=== PATIENT | male | born 1955 | race Caucasian/White ===

== ENCOUNTER 2017-01-14 15:04 | Emergency (ER) | payer MEDICARE, MEDICAID ==
--- NOTE | 2017-01-14 15:11 | ER Document Report ---
ED Medical Screen (RME) - General Stated Complaint: LEFT KNEE PAIN Mode of Arrival: Medic Information source: Patient Notes: 61-year-old male presents to ED via EMS for pain in his left knee. States that the pain caused him to fall. He has a history of left knee pain with surgeries 3 to that side he also has a history of a stroke with left-sided weakness. I have greeted and performed a rapid initial assessment of this patient. A comprehensive ED assessment and evaluation of the patient, analysis of test results and completion of medical decision making process will be conducted by an additional ED providers. TRAVEL OUTSIDE OF THE [place] IN LAST 30 DAYS: No - Related Data Allergies/Adverse Reactions: No Known Allergies Allergy (Verified 09/21/16 10:12) Past Medical History - Past Medical History Cardiac Medical History: Reports: Hx Coronary Artery Disease, Hx Hypercholesterolemia, Hx Hypertension - on meds Denies: Hx Heart Attack Pulmonary Medical History: Reports: Hx COPD - inhalers Denies: Hx Asthma, Hx Bronchitis, Hx Pneumonia Neurological Medical History: Reports: Hx Cerebrovascular Accident - x3, Hx Migraine - gets botox injection tx, Hx Seizures - p stroke x 1 yr ago,on meds GI Medical History: Reports: Hx Diverticulitis, Hx Gastroesophageal Reflux Disease, Hx Colonoscopy, Hx Endoscopy Musculoskeltal Medical History: Reports Hx Arthritis - knees, Reports Hx Musculoskeletal Trauma Psychiatric Medical History: Reports: Hx Depression Past Surgical History: Reports: Hx Carotid Endarterectomy - Right, Hx Orthopedic Surgery - right rotator, left knee scope x3, Hx Tonsillectomy, Hx Vascular Surgery - right carotid - Immunizations Immunizations up to date: Yes Hx Diphtheria, Pertussis, Tetanus Vaccination: Yes Physical Exam - Vital signs Vitals: Temp Pulse Resp BP Pulse Ox 98.3 F 73 17 144/81 H 94 01/14/17 15:24 01/14/17 15:24 01/14/17 15:24 01/14/17 15:24 01/14/17 15:24 Course - Vital Signs Vital signs: Temp Pulse Resp BP Pulse Ox 98.3 F 73 17 144/81 H 94 01/14/17 15:24 01/14/17 15:24 01/14/17 15:24 01/14/17 15:24 01/14/17 15:24
[2017-01-14 15:25] VITALS: BP 144/81
--- NOTE | 2017-01-14 18:09 | ER Document Report ---
HPI - HPI Patient complains to provider of: left knee pain Onset: This morning Onset/Duration: Sudden Quality of pain: Achy Pain Level: 4 Context: Patient states that his left knee gave out on him causing him to almost fall. Patient states he caught himself by grabbing a chair but complains of left medial knee tenderness. Patient reports a history of chronic knee pain with multiple surgeries on this left knee. Associated Symptoms: Other - Left knee injury Exacerbated by: Standing, Movement, Walking Relieved by: Denies Similar symptoms previously: Yes Recently seen / treated by doctor: No - ROS ROS below otherwise negative: Yes Systems Reviewed and Negative: Yes All other systems reviewed and negative - CONSTITUTIONAL Constitutional: DENIES: Fever, Chills - NEURO Neurology: DENIES: Weakness - GASTROINTESTINAL Gastrointestinal: DENIES: Nausea, Patient vomiting - MUSCULOSKELETAL Musculoskeletal: REPORTS: Extremity pain - Left knee. DENIES: Swelling - DERM Skin Color: Normal Skin Problems: None Past Medical History - General Information source: Patient - Social History Smoking Status: Current Every Day Smoker Chew tobacco use (# tins/day): No Frequency of alcohol use: None Drug Abuse: None Occupation: none Family History: Arthritis, CAD, CVA, Hyperlipidemia, Hypertension, Malignancy Patient has suicidal ideation: No Patient has homicidal ideation: No - Past Medical History Cardiac Medical History: Reports: Hx Coronary Artery Disease, Hx Hypercholesterolemia, Hx Hypertension - on meds Denies: Hx Heart Attack Pulmonary Medical History: Reports: Hx COPD - inhalers Denies: Hx Asthma, Hx Bronchitis, Hx Pneumonia Neurological Medical History: Reports: Hx Cerebrovascular Accident - x3, Hx Migraine - gets botox injection tx, Hx Seizures - p stroke x 1 yr ago,on meds Renal/ Medical History: Denies: Hx Peritoneal Dialysis GI Medical History: Reports: Hx Diverticulitis, Hx Gastroesophageal Reflux Disease, Hx Colonoscopy, Hx Endoscopy Musculoskeltal Medical History: Reports Hx Arthritis - knees, Reports Hx Musculoskeletal Trauma Psychiatric Medical History: Reports: Hx Depression Past Surgical History: Reports: Hx Carotid Endarterectomy - Right, Hx Orthopedic Surgery - right rotator, left knee scope x3, Hx Tonsillectomy, Hx Vascular Surgery - right carotid - Immunizations Immunizations up to date: Yes Hx Diphtheria, Pertussis, Tetanus Vaccination: Yes Hx Pneumococcal Vaccination: 10/18/12 Vertical Provider Document - CONSTITUTIONAL Agree With Documented VS: Yes Exam Limitations: No Limitations General Appearance: WD/WN, No Apparent Distress - INFECTION CONTROL TRAVEL OUTSIDE OF THE [place] IN LAST 30 DAYS: No - HEENT HEENT: Atraumatic, Normocephalic - NECK Neck: Normal Inspection, Supple - RESPIRATORY Respiratory: Breath Sounds Normal, No Respiratory Distress O2 Sat by Pulse Oximetry: 94 - CARDIOVASCULAR Cardiovascular: Regular Rate, Regular Rhythm, No Murmur Pulses: Normal: Posterior tibial - MUSCULOSKELETAL/EXTREMETIES Musculoskeletal/Extremeties: MAEW, FROM, Tender - Left knee joint tenderness to medial compartment, no effusion. No laxity with varus or valgus maneuvers. Patellar tendon intact. Normal skin color and temperature overlying joint - NEURO Level of Consciousness: Awake, Alert, Appropriate Motor/Sensory: No Motor Deficit, No Sensory Deficit - DERM Integumentary: Warm, Dry, No Rash Course - Re-evaluation Re-evalutation: 01/14/17 18:06 Review of patient's medication profile demonstrates that patient has a current active prescription for Percocet 5/325. Patient brought his bag of medications with him and did not bring the bottle of Percocet with him. When inquiring as to what pain medications that patient has been taking, patient denied taking any Percocet. Patient did not list Percocet as one of his current active prescriptions. After being confronted with review of patient's medication profile, patient did state he has the medication but didn't take it today. - Vital Signs Vital signs: Temp Pulse Resp BP Pulse Ox 98.3 F 73 17 144/81 H 94 01/14/17 15:24 01/14/17 15:24 01/14/17 15:24 01/14/17 15:24 01/14/17 15:24 - Diagnostic Test Radiology reviewed: Reports reviewed Procedures - Immobilization Left Knee Pre-Proc Neuro Vasc Exam: Normal Immobilizer type: Knee immobilizer Performed by: PCT Post-Proc Neuro Vasc Exam: Normal Alignment checked and good: Yes Discharge - Discharge Clinical Impression: Left knee sprain Qualifiers: Encounter type: initial encounter Involved ligament of knee: unspecified ligament Qualified Code(s): S83.92XA - Sprain of unspecified site of left knee, initial encounter Condition: Stable Disposition: HOME, SELF-CARE Instructions: Sprained Knee ([facility]), Knee Immobilizing Splint ([facility]), Use of Crutches ([facility]), Ice & Elevation ([facility]) Additional Instructions: Return immediately for any new or worsening symptoms Followup with your primary care provider, call tomorrow to make a followup appointment Take your pain medication that you have at home as prescribed Your blood pressure was mildly elevated today. Take her blood pressure medications that you have at home as prescribed. Prescriptions: Walker [Folding Walker] 1 each MC ASDIR PRN #1 each PRN Reason: Forms: Elevated Blood Pressure Referrals: KIKE PUGA MD [Primary Care Provider] - Follow up in 3-5 days SATHISH DUBOIS MD [ACTIVE STAFF] - Follow up tomorrow
== END 2017-01-14 18:33 | disposition home or self-care (01) ==
LOC: ER 15:04
DX: S83.92XA Sprain of unspecified site of left knee, initial encounter (principal); M25.562 Pain in left knee; G89.29 Other chronic pain; X58.XXXA Exposure to other specified factors, initial encounter; F17.200 Nicotine dependence, unspecified, uncomplicated
CPT/HCPCS: 99283; 73562; L1830

== ENCOUNTER 2017-02-01 09:12 | Emergency (ER) | payer MEDICARE, MEDICAID ==
[2017-02-01] MEDS ORDERED: TETRACAINE HCL 0.5% OPH SOLN 2 ML OD ONE (09:54)
--- NOTE | 2017-02-01 09:58 | ER Document Report ---
ED Medical Screen (RME) - General Chief Complaint: Eye Pain Stated Complaint: RIGHT EYE INJURY Notes: This 7-year-old comes in with a right eye pain and blurred vision. Last night his eye was reddened and a little sore. He woke up at 4 AM this morning with severe sharp stabbing pain. He was given some tetracaine drops here in triage, there is an obvious near central corneal abrasion noted. I have greeted and performed a rapid initial assessment of this patient. A comprehensive ED assessment and evaluation of the patient, analysis of test results and completion of the medical decision making process will be conducted by additional ED providers. TRAVEL OUTSIDE OF THE [place] IN LAST 30 DAYS: No - Related Data Allergies/Adverse Reactions: No Known Allergies Allergy (Verified 02/01/17 10:24) Past Medical History - Past Medical History Cardiac Medical History: Reports: Hx Coronary Artery Disease, Hx Hypercholesterolemia, Hx Hypertension - on meds Denies: Hx Heart Attack Pulmonary Medical History: Reports: Hx COPD - inhalers Denies: Hx Asthma, Hx Bronchitis, Hx Pneumonia Neurological Medical History: Reports: Hx Cerebrovascular Accident - x3, Hx Migraine - gets botox injection tx, Hx Seizures - p stroke x 1 yr ago,on meds Renal/ Medical History: Denies: Hx Peritoneal Dialysis GI Medical History: Reports: Hx Diverticulitis, Hx Gastroesophageal Reflux Disease, Hx Colonoscopy, Hx Endoscopy Musculoskeltal Medical History: Reports Hx Arthritis - knees, Reports Hx Musculoskeletal Trauma Psychiatric Medical History: Reports: Hx Depression Past Surgical History: Reports: Hx Carotid Endarterectomy - Right, Hx Orthopedic Surgery - right rotator, left knee scope x3, Hx Tonsillectomy, Hx Vascular Surgery - right carotid - Immunizations Immunizations up to date: Yes Hx Diphtheria, Pertussis, Tetanus Vaccination: Yes Physical Exam - Vital signs Vitals: Temp Pulse Resp BP Pulse Ox 97.9 F 78 20 174/91 H 97 02/01/17 09:17 02/01/17 09:17 02/01/17 09:17 02/01/17 09:17 02/01/17 09:17 Course - Vital Signs Vital signs: Temp Pulse Resp BP Pulse Ox 97.9 F 77 18 169/88 H 97 02/01/17 09:17 02/01/17 10:48 02/01/17 10:48 02/01/17 10:48 02/01/17 09:17 Doctor's Discharge - Discharge Clinical Impression: Corneal abrasion Condition: Stable Disposition: HOME, SELF-CARE Instructions: Corneal Abrasion ([facility]), Opthalmology Additional Instructions: Follow up with your primary care provider and an allied health teacher in one to 2 days. Return to the emergency room immediately if symptoms worsen or any additional concerns. Forms: Elevated Blood Pressure, Smoking Cessation Education Referrals: KIKE PUGA MD [Primary Care Provider] - Follow up as needed
[2017-02-01] MEDS ORDERED: POLYMYXIN B SULFATE/TMP OPH SOLN (10 ML/ER DISP) OD PRN (10:25)
--- NOTE | 2017-02-01 10:25 | ER Document Report ---
ED Eye Complaint - General Chief Complaint: Eye Pain Stated Complaint: RIGHT EYE INJURY Time seen by provider: 10:21 Mode of Arrival: Ambulatory Information source: Patient TRAVEL OUTSIDE OF THE [place] IN LAST 30 DAYS: No - HPI Patient complains to provider of: right eye pain Onset: This morning Eye location: Right Injury: No Occurred at: Home Quality of pain: Sharp Severity: Moderate Pain Level: 3 Associated symptoms: Pain, Redness, Blurred vision Notes: Patient is a 61-year-old male who presents to the emergency room complaining of right a pain that woke him up at 4:00 in the morning, he reports blurred vision associated with it, denies any specific injury, he does have swelling to the right eyelid with redness which appears as though he has been rubbing it, states he has some dry skin just above the eye and maybe while scratching that he may have scratched his eye as well - Related Data Allergies/Adverse Reactions: No Known Allergies Allergy (Verified 02/01/17 10:24) Past Medical History - General Information source: Patient - Social History Smoking Status: Current Every Day Smoker Family History: Arthritis, CAD, CVA, Hyperlipidemia, Hypertension, Malignancy Patient has suicidal ideation: No Patient has homicidal ideation: No - Past Medical History Cardiac Medical History: Reports: Hx Coronary Artery Disease, Hx Hypercholesterolemia, Hx Hypertension - on meds Denies: Hx Heart Attack Pulmonary Medical History: Reports: Hx COPD - inhalers Denies: Hx Asthma, Hx Bronchitis, Hx Pneumonia Neurological Medical History: Reports: Hx Cerebrovascular Accident - x3, Hx Migraine - gets botox injection tx, Hx Seizures - p stroke x 1 yr ago,on meds Renal/ Medical History: Denies: Hx Peritoneal Dialysis GI Medical History: Reports: Hx Diverticulitis, Hx Gastroesophageal Reflux Disease, Hx Colonoscopy, Hx Endoscopy Musculoskeltal Medical History: Reports Hx Arthritis - knees, Reports Hx Musculoskeletal Trauma Psychiatric Medical History: Reports: Hx Depression Past Surgical History: Reports: Hx Carotid Endarterectomy - Right, Hx Orthopedic Surgery - right rotator, left knee scope x3, Hx Tonsillectomy, Hx Vascular Surgery - right carotid - Immunizations Immunizations up to date: Yes Hx Diphtheria, Pertussis, Tetanus Vaccination: Yes Hx Pneumococcal Vaccination: 10/18/12 Review of Systems - Review of Systems Constitutional: No symptoms reported EENT: See HPI Cardiovascular: No symptoms reported Respiratory: No symptoms reported Gastrointestinal: No symptoms reported Genitourinary: No symptoms reported Male Genitourinary: No symptoms reported Musculoskeletal: No symptoms reported Skin: No symptoms reported Hematologic/Lymphatic: No symptoms reported Neurological/Psychological: No symptoms reported -: Yes All other systems reviewed and negative Physical Exam - Vital signs Vitals: Temp Pulse Resp BP Pulse Ox 97.9 F 78 20 174/91 H 97 02/01/17 09:17 02/01/17 09:02/01/17 09:02/01/17 09:02/01/17 09:17 Interpretation: Hypertensive - General Notes: - General General appearance: Appears well, Alert In distress: None - HEENT Head: Normocephalic, Atraumatic Extraocular movements intact: Yes Eyelashes: Normal Pupils: PERRL - Respiratory Respiratory status: No respiratory distress - Cardiovascular Rhythm: Regular - Abdominal Inspection: Normal - Back Back: Normal - Extremities General upper extremity: Normal inspection General lower extremity: Normal inspection - Neurological Neuro grossly intact: Yes Orientation: AAOx4 Kris Coma Scale Eye Opening: Spontaneous Kris Coma Scale Verbal: Oriented [place] Coma Scale Motor: Obeys Commands Kris Coma Scale Total: 15 - Psychological Associated symptoms: Normal affect, Normal mood - Skin Skin Temperature: Warm Skin Moisture: Dry Skin Color: Normal - HEENT Head: Normocephalic, Atraumatic Eyes: Other - Right eye with perioral erythema Cornea: Corneal abrasion - Right eye, 4 mm, covering pupil and midportion of Extraocular movements intact: Yes Eyelashes: Normal Pupils: PERRL Course - Re-evaluation Re-evalutation: 02/01/17 10:23 Patient with obvious corneal abrasion to the right eye, was informed of this finding, started on antibiotic drops and given information for follow-up with ophthalmology, patient acknowledges understanding and agreement with this plan - Vital Signs Vital signs: Temp Pulse Resp BP Pulse Ox 97.9 F 78 20 174/91 H 97 02/01/17 09:02/01/17 09:02/01/17 09:02/01/17 09:02/01/17 09:17 Procedures - Eye Procedure Right Time completed: 10:23 Eye Irrigated w/ Saline (ccs): 10 Alcaine Drops Administered: Yes Fluorescein applied: Right Antibiotic Oinment/Drps Admin: Right eye Slit lamp used: No Eyes picture: 1 - Corneal abrasion Discharge - Discharge Clinical Impression: Corneal abrasion Qualifiers: Encounter type: initial encounter Laterality: right Qualified Code(s): S05.01XA - Injury of conjunctiva and corneal abrasion without foreign body, right eye, initial encounter Condition: Stable Disposition: HOME, SELF-CARE Instructions: Corneal Abrasion ([facility]), Opthalmology Additional Instructions: Follow up with your primary care provider and an carpet loom fixer in one to 2 days. Return to the emergency room immediately if symptoms worsen or any additional concerns. Forms: Smoking Cessation Education, Elevated Blood Pressure Referrals: KIKE PUGA MD [Primary Care Provider] - Follow up as needed
[2017-02-01 11:02] VITALS: BP 169/88
== END 2017-02-01 10:50 | disposition home or self-care (01) ==
LOC: ER 09:12
DX: S05.01XA Injury of conjunctiva and corneal abrasion without foreign body, right eye, initial encounter (principal); X58.XXXA Exposure to other specified factors, initial encounter; Y92.009 Unspecified place in unspecified non-institutional (private) residence as the place of occurrence of the external cause; F17.200 Nicotine dependence, unspecified, uncomplicated; I25.10 Atherosclerotic heart disease of native coronary artery without angina pectoris; E78.00 Pure hypercholesterolemia, unspecified; I10 Essential (primary) hypertension; J44.9 Chronic obstructive pulmonary disease, unspecified; Z86.73 Personal history of transient ischemic attack (TIA), and cerebral infarction without residual deficits
CPT/HCPCS: 99283; J3490

== ENCOUNTER → 2017-02-01 | Outpatient (CLI) | payer MEDICARE, MEDICAID ==
[2017-02-01 12:05] LABS: ANION GAP 12 (5-19); BLOOD UREA NITROGEN 23 mg/dL (7-20); CALCIUM 9.7 mg/dL (8.4-10.2); CARBON DIOXIDE 26 mmol/L (22-30); CHLORIDE 103 mmol/L (98-107); CREATININE RESULT 1.04 mg/dL (0.52-1.25); GLUCOSE 97 mg/dL (75-110); POTASSIUM 4.5 mmol/L (3.6-5.0); SODIUM 141.3 mmol/L (137-145)
== END ==
LOC: LAB 11:22
PROVIDERS: ATTEND Internal Medicine Nephrology
DX: I10 Essential (primary) hypertension (principal); N17.9 Acute kidney failure, unspecified
CPT/HCPCS: 36415; 80048

== ENCOUNTER 2017-04-05 09:48 | Inpatient (IN) | payer MEDICARE, MEDICAID ==
[2017-04-05 10:24] LABS: ABSOLUTE BASOPHILS # (AUTO) 0.1 10^3/uL (0.0-0.2); ABSOLUTE EOSINOPHILS # (AUTO) 0.5 10^3/uL (0.0-0.6); ABSOLUTE MONOCYTES (AUTO) 1.1 10^3/uL (0.1-1.4); ABSOLUTE NEUT (AUTO) 7.8 10^3/uL (1.7-8.2); BASOPHILS % (AUTO) 0.7 % (0-2); EOSINOPHILS % (AUTO) 4.2 % (0-6); HEMATOCRIT 41.7 % (37.9-51.0); HEMOGLOBIN 13.8 g/dL (13.5-17.0); HGB HCT DIFFERENCE -0.3; LYMPHOCYTES % (AUTO) 24.4 % (13-45); MEAN CORPUSCULAR HEMOGLOBIN 30.5 pg (27.0-33.4); MEAN CORPUSCULAR VOLUME 92 fl (80-97); MONOCYTES % (AUTO) 8.7 % (3-13); RED BLOOD COUNT 4.51 10^6/uL (4.35-5.55); RED CELL DISTRIBUTION WIDTH 15.5 % (11.5-14.0); WHITE BLOOD COUNT 12.5 10^3/uL (4.0-10.5)
[2017-04-05 10:45] LABS: ALANINE AMINOTRANSFERASE 41 U/L (21-72); ALBUMIN 3.9 g/dL (3.5-5.0); ALKALINE PHOSPHATASE 85 U/L (38-126); ANION GAP 13 (5-19); ASPARTATE AMINO TRANSFERASE 82 U/L (17-59); BILIRUBIN,DIRECT 0.3 mg/dL (0.0-0.4); BILIRUBIN,TOTAL 0.3 mg/dL (0.2-1.3); BLOOD UREA NITROGEN 69 mg/dL (7-20); CALCIUM 8.9 mg/dL (8.4-10.2); CARBON DIOXIDE 20 mmol/L (22-30); CHLORIDE 109 mmol/L (98-107); CREATININE RESULT 6.99 mg/dL (0.52-1.25); GLUCOSE 91 mg/dL (75-110); POTASSIUM 4.8 mmol/L (3.6-5.0); SODIUM 142.1 mmol/L (137-145); TOTAL PROTEIN 6.9 g/dL (6.3-8.2)
--- NOTE | 2017-04-05 11:16 | RADIOLOGY REPORT (SQ) ---
EXAM DESCRIPTION: CT HEAD WITHOUT COMPLETED DATE/TIME: 04/05/2017 11:05 am REASON FOR STUDY: fall, abrasion to forehead, neck pain COMPARISON: 02/20/2016 TECHNIQUE: Axial images acquired through the brain without intravenous contrast. Images reviewed wi th bone, brain and subdural windows. Images stored on PACS. All CT scanners at this facility use dose modulation, iterative reconstruction, and/or weight based d osing when appropriate to reduce radiation dose to as low as reasonably achievable (ALARA). [facility]: Dose Right [facility]: CareDose [facility]: Dose Right [facility]: Teradose 4D [facility]: [email or web address] RADIATION DOSE: Up-to-date CT equipment and radiation dose reduction techniques were employed. CTDIv ol: 64.6 mGy. DLP: 1421 mGy-cm. mGy. LIMITATIONS: None. FINDINGS: VENTRICLES: Normal size and contour. CEREBRUM: No masses. No hemorrhage. No midline shift. Normal fields/white matter differentiation. N o evidence for acute infarction. CEREBELLUM: No masses. No hemorrhage. No alteration of density. No evidence for acute infarction. EXTRAAXIAL SPACES: No fluid collections. No masses. ORBITS AND GLOBE: No intra- or extraconal masses. Normal contour of globe without masses. CALVARIUM: No fracture. PARANASAL SINUSES: No fluid or mucosal thickening. SOFT TISSUES: No mass or hematoma. OTHER: No other significant finding. IMPRESSION: NORMAL BRAIN CT WITHOUT CONTRAST. TECHNICAL DOCUMENTATION: JOB ID: [id number] Quality ID # [id number]: Final reports with documentation of one or more dose reduction techniques (e.g., Au tomated exposure control, adjustment of the mA and/or kV according to patient size, use of iterative reconstruction technique) 2010 [employer]- All Rights Reserved
--- NOTE | 2017-04-05 11:20 | RADIOLOGY REPORT (SQ) ---
EXAM DESCRIPTION: CT CERVICAL SPINE WITHOUT COMPLETED DATE/TIME: 04/05/2017 11:05 am REASON FOR STUDY: neck pain COMPARISON: None. TECHNIQUE: Axial images acquired through the cervical spine without intravenous contrast. Images re viewed with lung, soft tissue and bone windows. Reconstructed coronal and sagittal MPR images review ed. Images stored on PACS. All CT scanners at this facility use dose modulation, iterative reconstruction, and/or weight based d osing when appropriate to reduce radiation dose to as low as reasonably achievable (ALARA). [facility]: Dose Right [facility]: CareDose [facility]: Dose Right [facility]: Teradose 4D [facility]: Smart [employer] RADIATION DOSE: Up-to-date CT equipment and radiation dose reduction techniques were employed. CTDIv ol: 19.7 mGy. DLP: 353 mGy-cm. mGy. LIMITATIONS: None. FINDINGS: ALIGNMENT: There is reversal of the normal cervical lordosis in mid cervical spine. MINERALIZATION: Normal. VERTEBRAL BODIES: No fractures or dislocation. DISCS: Disc spaces are narrowed at C5-6 and C6-7. Anterior and posterior osteophytes are present at C6-7. FACETS, LATERAL MASSES, POSTERIOR ELEMENTS: Hypertrophic facet changes are present on the right at C3 -4 and C4-5. There is mild foraminal narrowing at these levels on the right side. HARDWARE: None in the spine. VISUALIZED RIBS: No fractures. LUNG APICES AND SOFT TISSUES: No significant or acute findings. OTHER: No other significant finding. IMPRESSION: Degenerative disc disease, spondylosis, and facet arthropathy as described. TECHNICAL DOCUMENTATION: JOB ID: [id number] Quality ID # [id number]: Final reports with documentation of one or more dose reduction techniques (e.g., Au tomated exposure control, adjustment of the mA and/or kV according to patient size, use of iterative reconstruction technique) 2010 [employer]- All Rights Reserved
--- NOTE | 2017-04-05 11:36 | ER Document Report ---
ED General - General Chief Complaint: Neck Injury Stated Complaint: NECK/SHOULDER PAIN Time Seen by Provider: 04/05/17 10:00 Mode of Arrival: Medic Information source: Patient Notes: 62-year-old male presents with complaints of fall striking his neck back. Patient is noted to have a history of renal insufficiency but was told the last visit that his kidneys were functioning appropriately. Patient notes he has not been eating well or drinking well and has been feeling very shaky and tired TRAVEL OUTSIDE OF THE [place] IN LAST 30 DAYS: No - HPI Onset: Just prior to arrival Onset/Duration: Sudden Quality of pain: Achy Severity: Mild Pain Level: 1 Associated symptoms: Body/muscle aches, Weakness Exacerbated by: Denies Relieved by: Denies Similar symptoms previously: Yes Recently seen / treated by doctor: Yes - Related Data Allergies/Adverse Reactions: No Known Allergies Allergy (Verified 04/05/17 09:52) Past Medical History - Social History Smoking Status: Current Every Day Smoker Cigarette use (# per day): Yes Chew tobacco use (# tins/day): No Smoking Education Provided: Yes Frequency of alcohol use: None Drug Abuse: None Family History: Arthritis, CAD, CVA, Hyperlipidemia, Hypertension, Malignancy - Past Medical History Cardiac Medical History: Reports: Hx Coronary Artery Disease, Hx Hypercholesterolemia, Hx Hypertension - on meds Denies: Hx Heart Attack Pulmonary Medical History: Reports: Hx COPD Denies: Hx Asthma, Hx Bronchitis, Hx Pneumonia Neurological Medical History: Reports: Hx Cerebrovascular Accident - x3, Hx Migraine - gets botox injection tx, Hx Seizures - p stroke x 1 yr ago,on meds Renal/ Medical History: Denies: Hx Peritoneal Dialysis GI Medical History: Reports: Hx Diverticulitis, Hx Gastroesophageal Reflux Disease, Hx Colonoscopy, Hx Endoscopy Musculoskeltal Medical History: Reports Hx Arthritis, Reports Hx Musculoskeletal Trauma Psychiatric Medical History: Reports: Hx Depression Past Surgical History: Reports: Hx Carotid Endarterectomy - Right, Hx Orthopedic Surgery - right rotator, left knee scope x3, Hx Tonsillectomy, Hx Vascular Surgery - right carotid - Immunizations Immunizations up to date: Yes Hx Diphtheria, Pertussis, Tetanus Vaccination: Yes Hx Pneumococcal Vaccination: 10/18/12 Review of Systems - Review of Systems Notes: REVIEW OF SYSTEMS: CONSTITUTIONAL : Denies fever, chills, or sweats. Denies recent illness. EENT: Denies eye, ear, throat, or mouth pain or symptoms. Denies nasal or sinus congestion or discharge. Denies throat, tongue, or mouth swelling or difficulty swallowing. CARDIOVASCULAR: Denies chest pain. Denies palpitations or racing or irregular heart beat. Denies ankle edema. RESPIRATORY: Denies cough, cold, or chest congestion. Denies shortness of breath, difficulty breathing, or wheezing. GASTROINTESTINAL: Denies abdominal pain or distention. Denies nausea, vomiting , or diarrhea. Denies blood in vomitus, stools, or per rectum. Denies black, tarry stools. Denies constipation. GENITOURINARY: Denies difficulty urinating, painful urination, burning, frequency, blood in urine, or discharge. MUSCULOSKELETAL: Admits to neck pain back pain SKIN: Denies rash, lesions or sores. HEMATOLOGIC : Denies easy bruising or bleeding. LYMPHATIC: Denies swollen, enlarged glands. NEUROLOGICAL: Admits to generalized weakness admits to shakiness PSYCHIATRIC: Denies anxiety or stress. Denies depression, suicidal ideation, or homicidal ideation. ALL OTHER SYSTEMS REVIEWED AND NEGATIVE. Dictation was performed using [employer] voice recognition software PHYSICAL EXAMINATION: GENERAL: Well-appearing, well-nourished and in no acute distress. HEAD: Atraumatic, normocephalic. EYES: Pupils equal round and reactive to light, extraocular movements intact, sclera anicteric, conjunctiva are normal. ENT: Nares patent, oropharynx clear without exudates. Moist mucous membranes. NECK: Cervical tenderness patient in c-collar removed after cleared LUNGS: Breath sounds clear to auscultation bilaterally and equal. No wheezes rales or rhonchi. HEART: Regular rate and rhythm without murmurs ABDOMEN: Soft, nontender, nondistended abdomen. No guarding, no rebound. No masses appreciated. Musculoskeletal: Normal range of motion, no pitting or edema. No cyanosis. NEUROLOGICAL: Left-sided chronic deficit PSYCH: Normal mood, normal affect. SKIN: Warm, Dry, normal turgor, no rashes or lesions noted. Physical Exam - Vital signs Vitals: Temp Pulse Resp BP Pulse Ox 98.9 F 88 20 101/68 98 04/05/17 09:53 04/05/17 09:53 04/05/17 09:53 04/05/17 09:53 04/05/17 09:53 Course - Re-evaluation Re-evalutation: 04/05/17 15:14 Patient is noted to have acute renal failure, his creatinine significantly elevated compared to previous labs 2 months ago, after admitting the patient it is noted that he has become quite hypotensive, 2 L of fluid were initially bolused blood pressures improved from 50s over 20s-90s, he did become hypotensive again and to further liters were given 04/05/17 16:10 I spoke with the admitting physician, patient was upgraded to the ICU, pressors were ordered and are awaiting to be given - Vital Signs Vital signs: Temp Pulse Resp BP Pulse Ox 98.9 F 88 15 103/65 90 L 04/05/17 09:53 04/05/17 09:53 04/05/17 15:56 04/05/17 15:56 04/05/17 15:56 - Laboratory Result Diagrams: 04/05/17 10:10 04/05/17 10:10 Laboratory results interpreted by me: 04/05/17 04/05/17 10:10 10:10 WBC 12.5 H RDW 15.5 H Chloride 109 H Carbon Dioxide 20 L BUN 69 H Creatinine 6.99 H Est GFR ( Amer) 10 L Est GFR (Non-Af Amer) 8 L AST 82 H - Diagnostic Test Radiology reviewed: Image reviewed, Reports reviewed - no Acute abnormality Critical Care Note - Critical Care Note Total time excluding time spent on procedures (mins): 34 Comments: 34 minutes of critical care time spent in direct contact evaluating and reevaluating the patient, treating symptoms, reviewing labs and studies and speaking with family and consultants excluding any procedures Discharge - Discharge Clinical Impression: Weakness, Left hemiparesis Acute renal failure Qualifiers: Acute renal failure type: unspecified Qualified Code(s): N17.9 - Acute kidney failure, unspecified Severe hypotension Qualifiers: Hypotension type: unspecified hypotension type Qualified Code(s): I95.9 - Hypotension, unspecified Disposition: ADMITTED INPATIENT Admitting Provider: Hospitalist Unit Admitted: Medical Floor
[2017-04-05] MEDS: NORMAL SALINE 1000 ML 1,000 ML IV PRN ×3 (12:21→19:31)
[2017-04-05] MEDS ORDERED: IPRATROPIUM/ALBUTEROL 0.5-2.5 MG/3 ML AMPUL NEB PRN (14:23)
[2017-04-05] MEDS ORDERED: ACETAMINOPHEN 325 MG TABLET PO PRN (14:23)
[2017-04-05] MEDS ORDERED: ONDANSETRON HCL INJ/PF 4 MG/2 ML SDV IV PRN (14:23)
--- NOTE | 2017-04-05 14:43 | PDOC H&P ---
History of Present Illness Admission Date/PCP: 04/05/17 12:47 Patient complains of: dizziness History of Present Illness: GERARDO DEUTSCH is a 62 year old male, w/ HTN, COPD, coronary artery disease, prior stroke, came to the emergency room because of dizziness with associated nausea of 2 days' duration. There is no blurring of vision or syncopal episode. There is no abdominal pain. Patient denies any vomiting. Patient had fallen yesterday due to dizziness causing some abrasion on the forehead. Symptoms persisted today presenting to the emergency room. For the past 2 months the patient has been dealing with knee pain and discomfort from a recent ablation and injury. He denies taking [id number] nonsteroidal anti- inflammatory medications or any Goody powders. He denies working under the sun for long period of Time causing excessive sweating. He denies diarrhea, intractable vomiting, excessive sweating. He denies any new medication intake. There is no sinus congestion or pressure. He has chronic cough from smoking and COPD. He has not had any new symptoms other than the dizziness and nausea. He does not know if he is on a diuretic. In the emergency room his creatinine was found to be elevated at 6.9. Intravenous fluid was given and the patient was referred for admission. Past Medical History Past Medical History: Medication reconciliation pending verification from the patient's pharmacist Cardiac Medical History: Reports: Coronary Artery Disease, Hyperlipidema, Hypertension - on meds Denies: Myocardial Infarction Pulmonary Medical History: Reports: Chronic Obstructive Pulmonary Disease (COPD) Denies: Asthma, Bronchitis, Pneumonia Neurological Medical History: Reports: Migraine - gets botox injection tx, Seizures - p stroke x 1 yr ago,on meds GI Medical History: Reports: Diverticulitis, Gastroesophageal Reflux Disease Musculoskeltal Medical History: Reports: Arthritis Psychiatric Medical History: Reports: Depression Hematology: Reports: Anemia - hx of Past Surgical History Past Surgical History: Reports: Carotid Endarterectomy - Right, Orthopedic Surgery - right rotator, left knee scope x3, Tonsillectomy, Vascular Surgery - right carotid Social History Information Source: Patient Smoking Status: Current Every Day Smoker Frequency of Alcohol Use: Rare Hx Recreational Drug Use: No - patient denies Drugs: None Hx Prescription Drug Abuse: No Family History Family History: Arthritis, CAD, CVA, Hyperlipidemia, Hypertension, Malignancy Parental Family History Reviewed: Yes Children Family History Reviewed: Yes Sibling(s) Family History Reviewed.: Yes Medication/Allergy Allergies/Adverse Reactions: No Known Allergies Allergy (Verified 04/05/17 09:52) Review of Systems Constitutional: PRESENT: fatigue, weakness - Generalized. ABSENT: chills, fever (s), headache(s), night sweats, weight gain, weight loss Eyes: ABSENT: visual disturbances Ears: ABSENT: hearing changes Nose, Mouth, and Throat: PRESENT: vertigo. ABSENT: mouth pain, sore throat Cardiovascular: PRESENT: dyspnea on exertion - Chronic. ABSENT: chest pain, edema, orthropnea, palpitations Respiratory: PRESENT: cough - Chronic. ABSENT: dyspnea, hemoptysis, sputum Gastrointestinal: PRESENT: constipation, nausea. ABSENT: abdominal pain, coffee ground emesis, diarrhea, hematemesis, hematochezia, melena, vomiting Genitourinary: ABSENT: dysuria, hematuria Musculoskeletal: ABSENT: joint swelling Integumentary: ABSENT: pruritus, rash, wounds Neurological: ABSENT: abnormal gait, abnormal speech, confusion, dizziness, focal weakness, syncope Psychiatric: ABSENT: anxiety, depression, homidical ideation, suicidal ideation Endocrine: ABSENT: cold intolerance, heat intolerance, polydipsia, polyuria Hematologic/Lymphatic: ABSENT: easy bleeding, easy bruising Physical Exam Vital Signs: Temp Pulse Resp BP Pulse Ox 98.9 F 88 20 101/68 98 04/05/17 09:53 04/05/17 09:53 04/05/17 09:53 04/05/17 09:53 04/05/17 09:53 General appearance: PRESENT: no acute distress, well-developed, well-nourished Head exam: PRESENT: atraumatic, normocephalic Eye exam: PRESENT: conjunctiva pink, EOMI, PERRLA. ABSENT: scleral icterus Ear exam: PRESENT: normal external ear exam. ABSENT: drainage Mouth exam: PRESENT: dry mucosa, tongue midline. ABSENT: neck supple Throat exam: ABSENT: post pharyngeal erythema, tonsillar erythema Neck exam: ABSENT: carotid bruit, JVD, lymphadenopathy, thyromegaly Respiratory exam: PRESENT: clear to auscultation nina, unlabored. ABSENT: rales , rhonchi, wheezes Cardiovascular exam: PRESENT: RRR, +S1, +S2. ABSENT: diastolic murmur, gallop, rubs, systolic murmur, tachycardia Pulses: PRESENT: normal dorsalis pedis pul Vascular exam: PRESENT: normal capillary refill GI/Abdominal exam: PRESENT: distended - Mildly, hypoactive bowel sounds, soft, tenderness - Mild discomfort to deep palpation, other - fullness to percussion. ABSENT: guarding, mass, organolmegaly, rebound Rectal exam: PRESENT: deferred Extremities exam: PRESENT: full ROM. ABSENT: calf tenderness, clubbing, pedal edema Neurological exam: PRESENT: alert, awake, oriented to person, oriented to place , oriented to time, oriented to situation Psychiatric exam: PRESENT: appropriate affect, normal mood. ABSENT: homicidal ideation, suicidal ideation Skin exam: PRESENT: dry, intact, warm. ABSENT: cyanosis, rash Results Impressions: Head CT 04/05/17 00:00 IMPRESSION: NORMAL BRAIN CT WITHOUT CONTRAST. Cervical Spine CT 04/05/17 10:00 IMPRESSION: Degenerative disc disease, spondylosis, and facet arthropathy as described. Assessment & Plan - Diagnosis (1) Acute renal failure Qualifiers: Acute renal failure type: unspecified Qualified Code(s): N17.9 - Acute kidney failure, unspecified Is this a current diagnosis for this admission?: Yes (2) Leukocytosis, unspecified Qualifiers: Leukocytosis type: unspecified Qualified Code(s): D72.829 - Elevated white blood cell count, unspecified Is this a current diagnosis for this admission?: Yes (3) Hyperlipidemia Qualifiers: Hyperlipidemia type: unspecified Qualified Code(s): E78.5 - Hyperlipidemia, unspecified Is this a current diagnosis for this admission?: Yes (4) Coronary artery disease Qualifiers: Coronary Disease-Associated Artery/Lesion type: [place] artery [place] vs. transplanted heart: [place] heart Associated angina: without angina Qualified Code(s): I25.10 - Atherosclerotic heart disease of [place] coronary artery without angina pectoris Is this a current diagnosis for this admission?: Yes (5) COPD (chronic obstructive pulmonary disease) Qualifiers: COPD type: unspecified COPD Qualified Code(s): J44.9 - Chronic obstructive pulmonary disease, unspecified Is this a current diagnosis for this admission?: Yes (6) Essential hypertension Is this a current diagnosis for this admission?: Yes (7) Gastroesophageal reflux disease Qualifiers: Esophagitis presence: without esophagitis Qualified Code(s): K21.9 - Gastro-esophageal reflux disease without esophagitis (8) History of stroke Is this a current diagnosis for this admission?: Yes (9) History of migraine headaches Is this a current diagnosis for this admission?: Yes (10) Depression Qualifiers: Depression Type: unspecified Qualified Code(s): F32.9 - Major depressive disorder, single episode, unspecified Is this a current diagnosis for this admission?: Yes - Time Time Spent: 50 to 70 Minutes - Inpatient Certification Based on my medical assessment, after consideration of the patient's comorbidities, presenting symptoms, or acuity I expect that the services needed warrant INPATIENT care.: Yes I certify that my determination is in accordance with my understanding of Medicare's requirements for reasonable and necessary INPATIENT services [42 CFR 412.3e].: Yes Medical Necessity: Significant Comorbidiites Make Outpatient Treatment Too Risky , Need Close Monitoring Due to Risk of Patient Decompensation, Need For IV Fluids, Need For Continuous Telemetry Monitoring, Risk of Complication if Not Cared For in Hospital, Risk of Diagnosis Which Will Require Inpatient Eval/Care/ Monitoring Post Hospital Care: D/C Manager Systems Documentation - Plan Summary Plan Summary: The patient will be admitted to telemetry. I will hold the patient's antihypertensive medications at this time. We will obtain a renal ultrasound and consult nephrology service. In the meantime I will hydrate the patient with normal saline. I will culture the patient's urine. DVT prophylaxis with heparin will be placed. We will obtain a chest x-ray and check oxygen protocol. We will monitor WBC as well. Further testing depends on the initial evaluation as outlined above. Patient developed hypotension, given total of 4 liters of IVF, begin levophed and transfer to ICU.
[2017-04-05] MEDS ORDERED: NORMAL SALINE 1000 ML 1,000 ML IV PRN (15:14)
[2017-04-05] MEDS ORDERED: DEXTROSE 5%-WATER 250 ML with NOREPINEPHRINE BITARTRATE 4 MG IV PRN ×2 (15:17)
--- NOTE | 2017-04-05 17:40 | RADIOLOGY REPORT (SQ) ---
EXAM DESCRIPTION: The 16 CHEST SINGLE VIEW COMPLETED DATE/TIME: 04/05/2017 5:18 pm REASON FOR STUDY: cough COMPARISON: 07/09/2016 EXAM PARAMETERS: NUMBER OF VIEWS: One view. TECHNIQUE: Single frontal radiographic view of the chest acquired. RADIATION DOSE: NA LIMITATIONS: None. FINDINGS: LUNGS AND PLEURA: There is ill-defined opacification in the right base. MEDIASTINUM AND HILAR STRUCTURES: No masses. Contour normal. HEART AND VASCULAR STRUCTURES: Heart normal in size. Normal vasculature. BONES: No acute findings. HARDWARE: None in the chest. OTHER: No other significant finding. IMPRESSION: Right lower lobe pneumonia versus atelectasis. TECHNICAL DOCUMENTATION: JOB ID: [id number]
[2017-04-05] MEDS: DOCUSATE SODIUM 100 MG CAPSULE PO SCH (19:52)
[2017-04-05 21:13] LABS: APPEARANCE,URINE SLIGHTLY-CLOUDY; BILIRUBIN,URINE NEGATIVE (NEGATIVE); GLUCOSE, URINE NEGATIVE (NEGATIVE); KETONES,URINE NEGATIVE (NEGATIVE); LEUKOCYTE ESTERASE,URINE NEGATIVE (NEGATIVE); NITRITE,URINE NEGATIVE (NEGATIVE); PROTEIN,URINE NEGATIVE (NEGATIVE); URINE SPECIFIC GRAVITY 1.017; UROBILINOGEN,URINE NEGATIVE mg/dL (<2.0)
[2017-04-05] MEDS: HEPARIN SOD (PORCINE) 5,000 UNIT/ML 1 ML SYRINGE SUBCUT SCH (21:37)
--- NOTE | 2017-04-05 22:35 | RADIOLOGY REPORT (SQ) ---
EXAM DESCRIPTION: [employer] COMPLETED DATE/TIME: 04/05/2017 10:02 pm REASON FOR STUDY: acute renal failure COMPARISON: None. TECHNIQUE: Dynamic and static grayscale images acquired of the kidneys and recorded on PACS. Additio nal selected color Doppler and spectral images recorded. LIMITATIONS: None. FINDINGS: RIGHT KIDNEY: Normal size. Normal echogenicity. No solid or suspicious masses. No h ydronephrosis. No calcifications. LEFT KIDNEY: Normal size. Normal echogenicity. No solid or suspicious masses. No hydronephrosi s. No calcifications. OTHER FINDINGS: No other significant finding. IMPRESSION: No hydronephrosis. TECHNICAL DOCUMENTATION: JOB ID: [id number] [employer]- All Rights Reserved
[2017-04-06] MEDS: ZOLPIDEM TARTRATE 5 MG TABLET PO PRN ×2 (02:02→23:30)
[2017-04-06] MEDS: NORMAL SALINE 1000 ML 1,000 ML IV PRN ×5 (02:03→21:58)
[2017-04-06 05:03] LABS: ABSOLUTE EOSINOPHILS # (AUTO) 0.5 10^3/uL (0.0-0.6); ABSOLUTE LYMPHOCYTES (AUTO) 2.4 10^3/uL (0.5-4.7); ABSOLUTE MONOCYTES (AUTO) 0.9 10^3/uL (0.1-1.4); BASOPHILS % (AUTO) 0.4 % (0-2); EOSINOPHILS % (AUTO) 5.3 % (0-6); HEMATOCRIT 39.8 % (37.9-51.0); HGB HCT DIFFERENCE -0.8; LYMPHOCYTES % (AUTO) 24.7 % (13-45); MEAN CORPUSCULAR HEMOGLOBIN 30.1 pg (27.0-33.4); MEAN CORPUSCULAR HGB CONC 32.6 g/dL (32.0-36.0); MEAN CORPUSCULAR VOLUME 93 fl (80-97); MONOCYTES % (AUTO) 8.7 % (3-13); RED CELL DISTRIBUTION WIDTH 15.6 % (11.5-14.0); SEGMENTED NEUTROPHILS % (AUTO) 60.9 % (42-78); WHITE BLOOD COUNT 9.8 10^3/uL (4.0-10.5)
[2017-04-06 05:12] LABS: ANION GAP 8 (5-19); BLOOD UREA NITROGEN 51 mg/dL (7-20); CALCIUM 7.4 mg/dL (8.4-10.2); CARBON DIOXIDE 19 mmol/L (22-30); CHLORIDE 115 mmol/L (98-107); CREATININE RESULT 2.77 mg/dL (0.52-1.25); GLUCOSE 83 mg/dL (75-110); POTASSIUM 5.2 mmol/L (3.6-5.0); SODIUM 142.4 mmol/L (137-145)
[2017-04-06] MEDS: LANSOPRAZOLE 30 MG TAB.RAP.DR PO SCH (05:31)
[2017-04-06] MEDS: HEPARIN SOD (PORCINE) 5,000 UNIT/ML 1 ML SYRINGE SUBCUT SCH ×3 (05:34→22:39)
[2017-04-06] MEDS ORDERED: ALBUTEROL SULFATE HFA (90 MCG/PUFF) 8 GM MDI (1 MDI/ER DISP) IH PRN (08:01)
[2017-04-06] MEDS ORDERED: PHARMACY COMMUNICATION ORDER MC NR (08:15)
[2017-04-06] MEDS ORDERED: ALBUTEROL SULFATE HFA (90 MCG/PUFF) 200 PUFF/8.5 GM MDI IH PRN (08:24)
[2017-04-06] MEDS ORDERED: LEVALBUTEROL HCL NEB 1.25 MG/3 ML AMPUL NEB PRN (09:53)
[2017-04-06] MEDS ORDERED: (PENDING PHARMACY ID) (Pantoprazole Sodium [Protonix] 20 MG) PO SCH (10:00)
[2017-04-06] MEDS: DOCUSATE SODIUM 100 MG CAPSULE PO SCH ×2 (10:05→17:48)
[2017-04-06] MEDS: PAROXETINE HCL 20 MG TABLET PO SCH (10:05)
[2017-04-06] MEDS: ASPIRIN 81 MG TABLET, CHEWABLE PO SCH (10:05)
[2017-04-06] MEDS: PREDNISONE 20 MG TABLET PO SCH ×2 (10:08→17:48)
[2017-04-06] MEDS: NICOTINE 14 MG/24 HR PATCH.TD24 TD SCH (10:09)
[2017-04-06] MEDS ORDERED: TIOTROPIUM BROMIDE DPI 5 CAP/KIT (18 MCG/CAP) IH ONE (11:00)
--- NOTE | 2017-04-06 18:06 | PDOC PROGRESS REPORT ---
Subjective Progress Note for:: 04/06/17 Subjective:: Was seen earlier today on morning rounds. Patient significant others present at bedside. Patient denies chest pain, shortness of breath, nausea, vomiting, fever, chills , headache, new onset weakness. Physical Exam Vital Signs: Temp Pulse Resp BP Pulse Ox 98.4 F 87 22 H 146/84 H 100 04/06/17 17:24 04/06/17 17:24 04/06/17 17:24 04/06/17 17:24 04/06/17 17:24 Intake & Output 04/05/17 04/06/17 04/07/17 06:59 06:59 06:59 Intake Total 1855 Output Total 800 1780 Balance 1055 -1780 Weight 82 kg 82 kg Exam: GENERAL: No acute distress HEENT: Conjunctiva clear, nonicteric, moist mucous membranes, no JVD, midline trachea RESPIRATORY: Prolonged expiratory phase, coarse CARDIAC: Regular rate and rhythm, no murmurs/gallops/rubs ABDOMEN: Soft, nondistended, nontender, positive bowel sounds, no rebound, no guarding EXTREMETIES: No cyanosis, edema; +clubbing mild NEUROLOGIC: Alert, oriented to person/place/time, CN's grossly intact, no focal deficits SKIN: No rash, wounds PSYCH: Normal mood, normal affect Results Laboratory Results: 04/06/17 04:37 04/06/17 04:37 04/05/17 04/06/17 04/06/17 20:50 04:37 04:37 WBC 9.8 RBC 4.30 L Hgb 13.0 L Hct 39.8 MCV 93 MCH 30.1 MCHC 32.6 RDW 15.6 H Plt Count 232 Seg Neutrophils % 60.9 Lymphocytes % 24.7 Monocytes % 8.7 Eosinophils % 5.3 Basophils % 0.4 Absolute Neutrophils 6.0 Absolute Lymphocytes 2.4 Absolute Monocytes 0.9 Absolute Eosinophils 0.5 Absolute Basophils 0.0 Sodium 142.4 Potassium 5.2 H Chloride 115 H Carbon Dioxide 19 L Anion Gap 8 BUN 51 H Creatinine 2.77 H Est GFR ( Amer) 28 L Est GFR (Non-Af Amer) 23 L Glucose 83 Calcium 7.4 L Urine Color YELLOW Urine Appearance SLIGHTLY-CLOUDY Urine pH 5.0 Ur Specific [place] 1.017 Urine Protein NEGATIVE Urine Glucose (UA) NEGATIVE Urine Ketones NEGATIVE Urine Blood MODERATE H Urine Nitrite NEGATIVE Ur Leukocyte Esterase NEGATIVE Urine WBC (Auto) 6 Urine RBC (Auto) 1 04/06/17 04:37 Creatine Kinase 4632 H Impressions: Chest X-Ray 04/05/17 00:00 IMPRESSION: Right lower lobe pneumonia versus atelectasis. Head CT 04/05/17 00:00 IMPRESSION: NORMAL BRAIN CT WITHOUT CONTRAST. Cervical Spine CT 04/05/17 10:00 IMPRESSION: Degenerative disc disease, spondylosis, and facet arthropathy as described. Renal Ultrasound 04/05/17 11:36 IMPRESSION: No hydronephrosis. Assessment & Plan - Diagnosis (1) Acute renal failure Qualifiers: Acute renal failure type: unspecified Qualified Code(s): N17.9 - Acute kidney failure, unspecified Is this a current diagnosis for this admission?: YesPlan: Patient's urine is currently not growing anything, and he has had an improvement in his overall creatinine. It appears so as though this patient has had rhabdomyolysis which may have been the precipitating cause of his underlying renal failure. Will continue to plot out his CPK. Continue height IV hydration. In light of rhabdomyolysis and mildly elevated liver enzymes, will consider hepatitis panel. (2) COPD (chronic obstructive pulmonary disease) Qualifiers: COPD type: COPD with acute exacerbation Qualified Code(s): J44.1 - Chronic obstructive pulmonary disease with (acute) exacerbation Is this a current diagnosis for this admission?: YesPlan: The patient on prednisone and scheduled nebulized treatments. (3) Coronary artery disease Qualifiers: Coronary Disease-Associated Artery/Lesion type: [place] artery [place] vs. transplanted heart: [place] heart Associated angina: without angina Qualified Code(s): I25.10 - Atherosclerotic heart disease of [place] coronary artery without angina pectoris Is this a current diagnosis for this admission?: Yes (4) Depression Qualifiers: Depression Type: unspecified Qualified Code(s): F32.9 - Major depressive disorder, single episode, unspecified Is this a current diagnosis for this admission?: Yes (5) Essential hypertension Is this a current diagnosis for this admission?: YesPlan: We will re-add medications as tolerated. (6) Gastroesophageal reflux disease Qualifiers: Esophagitis presence: without esophagitis Qualified Code(s): K21.9 - Gastro-esophageal reflux disease without esophagitis Is this a current diagnosis for this admission?: YesPlan: Continue PPI (7) History of migraine headaches Is this a current diagnosis for this admission?: Yes (8) History of stroke Is this a current diagnosis for this admission?: Yes (9) Cigarette smoker two packs a day or less Is this a current diagnosis for this admission?: YesPlan: Begin patient on nicotine patch. Patient has been counseled on cessation.asting greater than 3 minutes - Time Time Spent with patient: 25-34 minutes Medications reviewed and adjusted accordingly: Yes Anticipated discharge: Home Within: within 48 hours - Inpatient Certification Based on my medical assessment, after consideration of the patient's comorbidities, presenting symptoms, or acuity I expect that the services needed warrant INPATIENT care.: Yes I certify that my determination is in accordance with my understanding of Medicare's requirements for reasonable and necessary INPATIENT services [42 CFR 412.3e].: Yes Medical Necessity: Need For IV Fluids, Need For Continuous Telemetry Monitoring Post Hospital Care: D/C Price Lister Documentation
--- NOTE | 2017-04-06 20:47 | PDOC CONSULTATION ---
Consultation Consult Date: 04/06/17 Consult reason:: NESTOR History of Present Illness Admission Date/PCP: 04/05/17 14:23 History of Present Illness: GERARDO DEUTSCH is a 62 year old male, w/ HTN, COPD, coronary artery disease, prior stroke, came to the emergency room because of dizziness with associated nausea of 2 days' duration. There is a history of orthostasis but no syncopal episode, abdominal pain, vomiting or GI bleeds. Patient had fallen yesterday due to dizziness causing some abrasion on the forehead. For the past 2 months the patient has been dealing with knee pain and discomfort from a recent ablation and injury. He denies taking over-the- counter nonsteroidal anti-inflammatory medications or any Goody powders. He denies working under the sun for long period of time causing excessive sweating. He denies diarrhea, intractable vomiting, excessive sweating. He denies any new medication intake. There is no sinus congestion or pressure. He has chronic cough from smoking and COPD. He has not had any new symptoms other than the dizziness and nausea. In the emergency room he was found to be Hypotensive and he was diagnosed to have NESTOR from Acute Rhabdomyolysis with his creatinine was found to be elevated at 6.9. Patient has been begun on appropriate fluid resucitcation and his renal numbers are improving.Denies any prostatism, previous CKD. Past Medical History Cardiac Medical History: Reports: Abdominal Aortic Aneurysm - Says his AAA was told to be around 3.5 cms with atheromatous plaques as per, Coronary Artery Disease, Hyperlipidemia, Hypertension-primary Denies: Myocardial Infarction Pulmonary Medical History: Reports: Chronic Obstructive Pulmonary Disease (COPD) Denies: Asthma, Bronchitis, Pneumonia Neurological Medical History: Reports: Migraine - gets botox injection tx, Seizures - p stroke x 1 yr ago,on meds GI Medical History: Reports: Diverticulitis, Gastroesophageal Reflux Disease Musculoskeltal Medical History: Reports: Arthritis Psychiatric Medical History: Reports: Depression Past Surgical History Past Surgical History: Reports: Caroltid Endarterectomy - Right, Orthopedic Surgery - right rotator, left knee scope x3, Tonsillectomy, Vascular Surgery - right carotid Social History Smoking Status: Current Every Day Smoker Cigarettes Packs Per Day: 0.3 Frequency of Alcohol Use: None Hx Recreational Drug Use: No Drugs: None Hx Prescription Drug Abuse: No Family History Parental Family History Reviewed: Yes - negative for CKD Children Family History Reviewed: No Sibling(s) Family History Reviewed.: No Medication/Allergy Home Medications: Albuterol Sulfate [Proair HFA] 2 puff IH Q4HP PRN 04/05/17 Amitriptyline HCl [Elavil 50 Mg Tablet] 50 mg PO DAILY 04/05/17 Aspirin [Aspirin 81 mg Chewable Tablet] 81 mg PO DAILY 04/05/17 Gabapentin [Neurontin] 600 mg PO Q8 04/05/17 Hydroxyzine Pamoate [Vistaril 25 mg Capsule] 25 mg PO TIDP PRN 04/05/17 Lisinopril [Prinivil 40 mg Tablet] 40 mg PO DAILY 04/05/17 Oxycodone HCl/Acetaminophen [Percocet 5-325 mg Tablet] 1 tab PO TIDP PRN Pantoprazole Sodium [Protonix] 20 mg PO DAILY 04/05/17 Paroxetine HCl [Paxil 20 mg Tablet] 20 mg PO DAILY 04/05/17 Tizanidine HCl [Zanaflex 4 Mg Tablet] 4 mg PO HSP PRN 04/05/17 Zolpidem Tartrate [Ambien] 10 mg PO QHS 04/05/17 Allergies/Adverse Reactions: No Known Allergies Allergy (Verified 04/05/17 09:52) Review of Systems Constitutional: PRESENT: anorexia, fatigue, weakness. ABSENT: chills, fever(s) , headache(s), night sweats, weight loss Eyes: ABSENT: visual disturbances Cardiovascular: ABSENT: edema, orthropnea, palpitations Gastrointestinal: ABSENT: abdominal pain, coffee ground emesis, diarrhea, dysphagia, heartburn, hematemesis, hematochezia Musculoskeletal: ABSENT: deformity, joint swelling Integumentary: ABSENT: diaphoresis, lesions, pruritus Neurological: PRESENT: dizziness, weakness. ABSENT: focal weakness, syncope Endocrine: ABSENT: heat intolerance Hematologic/Lymphatic: ABSENT: easy bruising, lymphadenopathy Physical Exam Vital Signs: Temp Pulse Resp BP Pulse Ox 98.2 F 94 23 H 137/68 H 100 04/06/17 19:40 04/06/17 19:56 04/06/17 18:07 04/06/17 18:07 04/06/17 17:24 Intake & Output 04/05/17 04/06/17 04/07/17 06:59 06:59 06:59 Intake Total 1855 2403 Output Total 800 2080 Balance 1055 323 Weight 82 kg 82 kg General appearance: PRESENT: no acute distress Eye exam: PRESENT: conjunctiva pink, EOMI, PERRLA. ABSENT: nystagmus Mouth exam: ABSENT: moist Neck exam: ABSENT: meningismus, tenderness, thyromegaly, tracheal deviation Respiratory exam: PRESENT: clear to auscultation nina. ABSENT: crackles, rhonchi Cardiovascular exam: PRESENT: +S1, +S2 GI/Abdominal exam: PRESENT: normal bowel sounds, soft. ABSENT: diminished bowel sounds, distended, firm, guarding, organomegaly, tenderness Extremities exam: ABSENT: pedal edema Neurological exam: PRESENT: alert, awake, oriented to person, oriented to place , oriented to time Skin exam: PRESENT: dry. ABSENT: erythema, mottled, rash Results Laboratory Results: 04/06/17 04:37 04/06/17 04:37 04/05/17 04/06/17 04/06/17 20:50 04:37 04:37 WBC 9.8 RBC 4.30 L Hgb 13.0 L Hct 39.8 MCV 93 MCH 30.1 MCHC 32.6 RDW 15.6 H Plt Count 232 Seg Neutrophils % 60.9 Lymphocytes % 24.7 Monocytes % 8.7 Eosinophils % 5.3 Basophils % 0.4 Absolute Neutrophils 6.0 Absolute Lymphocytes 2.4 Absolute Monocytes 0.9 Absolute Eosinophils 0.5 Absolute Basophils 0.0 Sodium 142.4 Potassium 5.2 H Chloride 115 H Carbon Dioxide 19 L Anion Gap 8 BUN 51 H Creatinine 2.77 H Est GFR ( Amer) 28 L Est GFR (Non-Af Amer) 23 L Glucose 83 Calcium 7.4 L Urine Color YELLOW Urine Appearance SLIGHTLY-CLOUDY Urine pH 5.0 Ur Specific [place] 1.017 Urine Protein NEGATIVE Urine Glucose (UA) NEGATIVE Urine Ketones NEGATIVE Urine Blood MODERATE H Urine Nitrite NEGATIVE Ur Leukocyte Esterase NEGATIVE Urine WBC (Auto) 6 Urine RBC (Auto) 1 04/06/17 04:37 Creatine Kinase 4632 H Impressions: Chest X-Ray 04/05/17 00:00 IMPRESSION: Right lower lobe pneumonia versus atelectasis. Head CT 04/05/17 00:00 IMPRESSION: NORMAL BRAIN CT WITHOUT CONTRAST. Cervical Spine CT 04/05/17 10:00 IMPRESSION: Degenerative disc disease, spondylosis, and facet arthropathy as described. Renal Ultrasound 04/05/17 11:36 IMPRESSION: No hydronephrosis. Assessment & Plan - Diagnosis (1) AAA (abdominal aortic aneurysm) without rupture Plan: Stable.Seen apparently on recent CT abdomen by PCP as per patient. (2) Acute renal failure Qualifiers: Acute renal failure type: unspecified Qualified Code(s): N17.9 - Acute kidney failure, unspecified Is this a current diagnosis for this admission?: YesPlan: Secondary to Acute Rhabdomyolysis. Unknown etiology. On IV fluids.Add bicarb. (3) Essential hypertension Is this a current diagnosis for this admission?: YesPlan: stable as corrected hypotension. Monitor. (4) History of stroke Is this a current diagnosis for this admission?: Yes (5) Severe hypotension Qualifiers: Hypotension type: unspecified hypotension type Qualified Code(s): I95.9 - Hypotension, unspecified (6) Weakness Plan: improving with current rxs. (7) Metabolic acidosis Plan: . NESTOR. add bicarb (8) Acute renal failure due to rhabdomyolysis Plan: as mentioned earlier.
[2017-04-06 20:53] LABS: URINE BARBITURATES SCREEN NEGATIVE; URINE METHADONE SCREEN NEGATIVE; URINE OPIATES LOW NEGATIVE; URINE PHENCYCLIDINE SCREEN NEGATIVE
[2017-04-06] MEDS: SODIUM BICARBONATE 650 MG TABLET PO SCH (21:58)
[2017-04-07] MEDS: LANSOPRAZOLE 30 MG TAB.RAP.DR PO SCH (05:37)
[2017-04-07] MEDS: SODIUM BICARBONATE 650 MG TABLET PO SCH ×2 (05:37→13:25)
[2017-04-07] MEDS: HEPARIN SOD (PORCINE) 5,000 UNIT/ML 1 ML SYRINGE SUBCUT SCH ×2 (05:37→13:25)
[2017-04-07] MEDS: NORMAL SALINE 1000 ML 1,000 ML IV PRN (07:41)
[2017-04-07 08:12] LABS: ALANINE AMINOTRANSFERASE 41 U/L (21-72); ALBUMIN 3.1 g/dL (3.5-5.0); ALKALINE PHOSPHATASE 82 U/L (38-126); ANION GAP 10 (5-19); ASPARTATE AMINO TRANSFERASE 38 U/L (17-59); BILIRUBIN,DIRECT 0.3 mg/dL (0.0-0.4); BILIRUBIN,TOTAL 0.4 mg/dL (0.2-1.3); BLOOD UREA NITROGEN 34 mg/dL (7-20); CALCIUM 7.9 mg/dL (8.4-10.2); CARBON DIOXIDE 19 mmol/L (22-30); CHLORIDE 116 mmol/L (98-107); CREATININE RESULT 1.23 mg/dL (0.52-1.25); GLUCOSE 104 mg/dL (75-110); MAGNESIUM 1.6 mg/dL (1.6-2.3); PHOSPHORUS 2.5 mg/dL (2.5-4.5); POTASSIUM 4.6 mmol/L (3.6-5.0); SODIUM 145.1 mmol/L (137-145); URIC ACID 7.9 mg/dL (3.5-8.5)
[2017-04-07] MEDS: PAROXETINE HCL 20 MG TABLET PO SCH (09:16)
[2017-04-07] MEDS: NICOTINE 14 MG/24 HR PATCH.TD24 TD SCH (09:16)
[2017-04-07] MEDS: DOCUSATE SODIUM 100 MG CAPSULE PO SCH (09:17)
[2017-04-07] MEDS: PREDNISONE 20 MG TABLET PO SCH (09:17)
[2017-04-07] MEDS: ASPIRIN 81 MG TABLET, CHEWABLE PO SCH (09:17)
[2017-04-07] MEDS ORDERED: TIOTROPIUM BROMIDE DPI 5 CAP/KIT (18 MCG/CAP) IH SCH (10:00)
[2017-04-07] MEDS ORDERED: AMPICILLIN TRIHYD 500 MG CAPSULE PO SCH (12:00)
[2017-04-07 13:11] VITALS: BP 140/72
--- NOTE | 2017-04-08 19:08 | PDOC DISCHARGE SUMMARY ---
General - Admit/Disc Date/PCP Admission Date/Primary Care Provider: 04/05/17 14:23 Discharge Date: 04/07/17 - Discharge Diagnosis (1) Acute renal failure Is this a current diagnosis for this admission?: Yes (2) COPD (chronic obstructive pulmonary disease) Is this a current diagnosis for this admission?: Yes (3) Coronary artery disease Is this a current diagnosis for this admission?: Yes (4) Depression Is this a current diagnosis for this admission?: Yes (5) Essential hypertension Is this a current diagnosis for this admission?: Yes (6) Gastroesophageal reflux disease Is this a current diagnosis for this admission?: Yes (7) History of migraine headaches Is this a current diagnosis for this admission?: Yes (8) History of stroke Is this a current diagnosis for this admission?: Yes (9) Cigarette smoker two packs a day or less Is this a current diagnosis for this admission?: Yes - Additional Information Resuscitation Status: Full Code Discharge Diet: Cardiac Discharge Activity: Activity As Tolerated Home Medications: Albuterol Sulfate [Proair HFA] 2 puff IH Q4HP PRN 04/05/17 Amitriptyline HCl [Elavil 50 mg Tablet] 50 mg PO DAILY 04/05/17 Aspirin [Aspirin 81 mg Chewable Tablet] 81 mg PO DAILY 04/05/17 Gabapentin [Neurontin] 600 mg PO Q8 04/05/17 Hydroxyzine Pamoate [Vistaril 25 mg Capsule] 25 mg PO TIDP PRN 04/05/17 Pantoprazole Sodium [Protonix] 20 mg PO DAILY 04/05/17 Paroxetine HCl [Paxil 20 mg Tablet] 20 mg PO DAILY 04/05/17 Tizanidine HCl [Zanaflex 4 mg Tablet] 4 mg PO HSP PRN 04/05/17 Zolpidem Tartrate [Ambien] 10 mg PO QHS 04/05/17 Ampicillin Trihydrate [Princepen 500 mg Capsule] 500 mg PO Q6 #20 capsule Docusate Sodium [Colace 100 mg Capsule] 100 mg PO BID #60 capsule 04/07/17 Prednisone [Deltasone 20 mg Tablet] 20 mg PO BID #20 tablet 04/07/17 Tiotropium Solen [Spiriva Handihaler 5 Cap/Kit (18 Mcg/Cap)] 1 cap IH DAILY # 1 kit 04/07/17 History of Present Illness History of Present Illness: GERARDO DEUTSCH is a 62 year old male w/ HTN, COPD, coronary artery disease, prior stroke, came to the emergency room because of dizziness with associated nausea of 2 days' duration. There is a history of orthostasis but no syncopal episode, abdominal pain, vomiting or GI bleeds. Patient had fallen yesterday due to dizziness causing some abrasion on the forehead. For the past 2 months the patient has been dealing with knee pain and discomfort from a recent ablation and injury. He denies taking over-the- counter nonsteroidal anti-inflammatory medications or any Goody powders. He denies working under the sun for long period of time causing excessive sweating. He denies diarrhea, intractable vomiting, excessive sweating. He denies any new medication intake. There is no sinus congestion or pressure. He has chronic cough from smoking and COPD. He has not had any new symptoms other than the dizziness and nausea. In the emergency room he was found to be Hypotensive and he was diagnosed to have NESTOR from Acute Rhabdomyolysis with his creatinine was found to be elevated at 6.9. Patient has been begun on appropriate fluid resucitcation and his renal numbers are improving.Denies any prostatism, previous CKD. Hospital Course Hospital Course: Rehydrated with an improvement in his creatinine. Patient was found to have an elevated CPK which is felt to be likely the cause of his underlying renal failure. Patient was to stop Zocor. Advised also follow-up with nephrology as an outpatient. He was discharged home in stable condition. Physical Exam Vital Signs: Temp Pulse Resp BP Pulse Ox 97.4 F 81 18 140/72 H 100 04/07/17 13:08 04/07/17 13:08 04/07/17 13:08 04/07/17 13:08 04/07/17 13:08 Intake & Output 04/07/17 04/08/17 04/09/17 06:59 06:59 06:59 Intake Total 5169 Output Total 3180 Balance 1988 Weight 80.6 kg Exam: GENERAL: No acute distress HEENT: Conjunctiva clear, nonicteric, moist mucous membranes, no JVD, midline trachea RESPIRATORY: Prolonged expiratory phase, clear CARDIAC: Regular rate and rhythm, no murmurs/gallops/rubs ABDOMEN: Soft, nondistended, nontender, positive bowel sounds, no rebound, no guarding EXTREMETIES: No cyanosis, edema; +clubbing mild NEUROLOGIC: Alert, oriented to person/place/time, CN's grossly intact, no focal deficits SKIN: No rash, wounds PSYCH: Normal mood, normal affect Results Laboratory Results: 04/06/17 04:37 04/07/17 07:09 04/06/17 04/07/17 04:37 07:09 Creatine Kinase 4632 H 1434 H Impressions: Chest X-Ray 04/05/17 00:00 IMPRESSION: Right lower lobe pneumonia versus atelectasis. Head CT 04/05/17 00:00 IMPRESSION: NORMAL BRAIN CT WITHOUT CONTRAST. Cervical Spine CT 04/05/17 10:00 IMPRESSION: Degenerative disc disease, spondylosis, and facet arthropathy as described. Renal Ultrasound 04/05/17 11:36 IMPRESSION: No hydronephrosis. Qualifiers PATEINT BEING DISCHARGED WITH ANY OF THE FOLLOWING DIAGNOSIS?: No Plan Time Spent: Less than 30 Minutes
== END 2017-04-07 14:26 | disposition home or self-care (01) | DRG 558 ==
LOC: ER 09:48 → UNDOADMIN 12:47 → EH 12:47 → ICU 19:00 → 4W 04-06 21:37
PROC: 3E0F73Z Introduction of Anti-inflammatory into Respiratory Tract, Via Natural or Artificial Opening (ICD-10-PCS; principal; 2017-04-06)
DX: M62.82 Rhabdomyolysis (principal); N17.9 Acute kidney failure, unspecified; J44.1 Chronic obstructive pulmonary disease with (acute) exacerbation; E87.2 Acidosis; I25.10 Atherosclerotic heart disease of native coronary artery without angina pectoris; F32.9 Major depressive disorder, single episode, unspecified; I10 Essential (primary) hypertension; K21.9 Gastro-esophageal reflux disease without esophagitis; G43.909 Migraine, unspecified, not intractable, without status migrainosus; S00.81XA Abrasion of other part of head, initial encounter; W01.0XXA Fall on same level from slipping, tripping and stumbling without subsequent striking against object, initial encounter; I95.9 Hypotension, unspecified; M50.30 Other cervical disc degeneration, unspecified cervical region; E78.5 Hyperlipidemia, unspecified; M19.90 Unspecified osteoarthritis, unspecified site; I71.4 Abdominal aortic aneurysm, without rupture; D64.9 Anemia, unspecified; F17.210 Nicotine dependence, cigarettes, uncomplicated; Z86.73 Personal history of transient ischemic attack (TIA), and cerebral infarction without residual deficits; Z79.82 Long term (current) use of aspirin; Z79.899 Other long term (current) drug therapy; Z82.61 Family history of arthritis; Z82.3 Family history of stroke; Z80.9 Family history of malignant neoplasm, unspecified; Z82.49 Family history of ischemic heart disease and other diseases of the circulatory system
CPT/HCPCS: 36415; 70450; 71010; 72125; 76775; 80048; 80053; 80074; 80307; 81001; 82550; 83735; 84100; 84443; 84550; 85025; 87086; 87088; 99291; J1644; J3490; J7030; J7512

== ENCOUNTER → 2017-04-09 | Outpatient (CLI) | payer MEDICARE, MEDICAID ==
[2017-04-09 11:52] LABS: HEMATOCRIT 39.4 % (37.9-51.0); HEMOGLOBIN 13.1 g/dL (13.5-17.0); HGB HCT DIFFERENCE -0.1; MEAN CORPUSCULAR HGB CONC 33.2 g/dL (32.0-36.0); MEAN CORPUSCULAR VOLUME 90 fl (80-97); RED BLOOD COUNT 4.36 10^6/uL (4.35-5.55); RED CELL DISTRIBUTION WIDTH 15.3 % (11.5-14.0); WHITE BLOOD COUNT 11.3 10^3/uL (4.0-10.5)
[2017-04-09 12:08] LABS: APPEARANCE,URINE CLEAR; BILIRUBIN,URINE NEGATIVE (NEGATIVE); GLUCOSE, URINE 150 mg/dL (NEGATIVE); KETONES,URINE NEGATIVE (NEGATIVE); LEUKOCYTE ESTERASE,URINE NEGATIVE (NEGATIVE); NITRITE,URINE NEGATIVE (NEGATIVE); PROTEIN,URINE NEGATIVE (NEGATIVE); URINE SPECIFIC GRAVITY 1.018; UROBILINOGEN,URINE NEGATIVE mg/dL (<2.0)
[2017-04-09 12:09] LABS: RBC,URINE NONE SEEN /HPF; WBC,URINE NONE SEEN /HPF
[2017-04-09 12:23] LABS: ANION GAP 13 (5-19); BLOOD UREA NITROGEN 24 mg/dL (7-20); CALCIUM 9.6 mg/dL (8.4-10.2); CARBON DIOXIDE 22 mmol/L (22-30); CHLORIDE 108 mmol/L (98-107); CREATININE RESULT 0.94 mg/dL (0.52-1.25); GLUCOSE 81 mg/dL (75-110); POTASSIUM 4.8 mmol/L (3.6-5.0); SODIUM 143.3 mmol/L (137-145)
== END ==
LOC: OD 10:26
PROVIDERS: ATTEND Internal Medicine Nephrology
DX: I12.9 Hypertensive chronic kidney disease with stage 1 through stage 4 chronic kidney disease, or unspecified chronic kidney disease (principal); N18.2 Chronic kidney disease, stage 2 (mild)
CPT/HCPCS: 36415; 80048; 81001; 85027

== ENCOUNTER → 2017-04-14 | Outpatient (CLI) | payer MEDICARE, MEDICAID ==
[2017-04-14 09:17] LABS: HEMATOCRIT 40.9 % (37.9-51.0); HEMOGLOBIN 13.3 g/dL (13.5-17.0); MEAN CORPUSCULAR HEMOGLOBIN 29.9 pg (27.0-33.4); MEAN CORPUSCULAR HGB CONC 32.6 g/dL (32.0-36.0); MEAN CORPUSCULAR VOLUME 92 fl (80-97); RED BLOOD COUNT 4.46 10^6/uL (4.35-5.55); WHITE BLOOD COUNT 16.9 10^3/uL (4.0-10.5)
[2017-04-14 09:20] LABS: APPEARANCE,URINE CLEAR; BILIRUBIN,URINE NEGATIVE (NEGATIVE); GLUCOSE, URINE 150 mg/dL (NEGATIVE); KETONES,URINE NEGATIVE (NEGATIVE); LEUKOCYTE ESTERASE,URINE NEGATIVE (NEGATIVE); NITRITE,URINE NEGATIVE (NEGATIVE); PROTEIN,URINE NEGATIVE (NEGATIVE); URINE SPECIFIC GRAVITY 1.008; UROBILINOGEN,URINE NEGATIVE mg/dL (<2.0)
[2017-04-14 09:41] LABS: ANION GAP 13 (5-19); BLOOD UREA NITROGEN 27 mg/dL (7-20); CALCIUM 9.5 mg/dL (8.4-10.2); CARBON DIOXIDE 27 mmol/L (22-30); CHLORIDE 101 mmol/L (98-107); CREATININE RESULT 1.07 mg/dL (0.52-1.25); GLUCOSE 170 mg/dL (75-110); POTASSIUM 4.2 mmol/L (3.6-5.0); SODIUM 140.9 mmol/L (137-145)
== END ==
LOC: OD 08:09
PROVIDERS: ATTEND Internal Medicine Nephrology
DX: I10 Essential (primary) hypertension (principal); N17.9 Acute kidney failure, unspecified; M62.82 Rhabdomyolysis
CPT/HCPCS: 36415; 80048; 81001; 83735; 85027

== ENCOUNTER 2017-10-12 15:08 | Emergency (ER) | payer MEDICARE, MEDICAID ==
--- NOTE | 2017-10-12 16:24 | ER Document Report ---
ED General - General Chief Complaint: Flank Pain Stated Complaint: LEFT SIDE FLANK PAIN Time Seen by Provider: 10/12/17 16:14 Mode of Arrival: Ambulatory Information source: Patient Notes: 62-year-old male history of chronic kidney issues that is being followed by Dr. Pozo presents with complaints of coughing and felt a popping sensation in his left lower rib. Patient denies any fevers or chills admits that it hurts when he breathes and coughs. He denies any abdominal pain. Patient's initial complaint was for flank pain the patient admits that is not his flank is actually his ribs on palpation TRAVEL OUTSIDE OF THE [place] IN LAST 30 DAYS: No - HPI Onset: Just prior to arrival Onset/Duration: Sudden Quality of pain: Achy Severity: Mild Pain Level: 1 Associated symptoms: Other Exacerbated by: Movement, Coughing Relieved by: Denies Similar symptoms previously: No Recently seen / treated by doctor: No - Related Data Allergies/Adverse Reactions: simvastatin Allergy (Verified 10/12/17 16:20) Past Medical History - Social History Smoking Status: Current Every Day Smoker Cigarette use (# per day): Yes Chew tobacco use (# tins/day): No Smoking Education Provided: Yes - Patient counselled regarding cessation for 4 minutes Frequency of alcohol use: None Drug Abuse: Marijuana Family History: Arthritis, CAD, CVA, Hyperlipidemia, Hypertension, Malignancy Patient has suicidal ideation: No Patient has homicidal ideation: No - Past Medical History Cardiac Medical History: Reports: Hx Coronary Artery Disease, Hx Hypercholesterolemia, Hx Hypertension Denies: Hx Heart Attack Pulmonary Medical History: Reports: Hx COPD Denies: Hx Asthma, Hx Bronchitis, Hx Pneumonia Neurological Medical History: Reports: Hx Cerebrovascular Accident - x3, Hx Migraine - gets botox injection tx, Hx Seizures - p stroke x 1 yr ago,on meds Renal/ Medical History: Denies: Hx Peritoneal Dialysis GI Medical History: Reports: Hx Diverticulitis, Hx Gastroesophageal Reflux Disease, Hx Colonoscopy, Hx Endoscopy Musculoskeltal Medical History: Reports Hx Arthritis, Reports Hx Musculoskeletal Trauma Psychiatric Medical History: Reports: Hx Depression Past Surgical History: Reports: Hx Carotid Endarterectomy - Right, Hx Orthopedic Surgery - right rotator, left knee scope x3, Hx Tonsillectomy, Hx Vascular Surgery - right carotid - Immunizations Immunizations up to date: Yes Hx Diphtheria, Pertussis, Tetanus Vaccination: Yes Hx Pneumococcal Vaccination: 10/18/12 Review of Systems - Review of Systems Notes: REVIEW OF SYSTEMS: CONSTITUTIONAL : Denies fever, chills, or sweats. Denies recent illness. EENT: Denies eye, ear, throat, or mouth pain or symptoms. Denies nasal or sinus congestion or discharge. Denies throat, tongue, or mouth swelling or difficulty swallowing. CARDIOVASCULAR: Denies chest pain. Denies palpitations or racing or irregular heart beat. Denies ankle edema. RESPIRATORY: Denies cough, cold, or chest congestion. Denies shortness of breath, difficulty breathing, or wheezing. GASTROINTESTINAL: Denies abdominal pain or distention. Denies nausea, vomiting , or diarrhea. Denies blood in vomitus, stools, or per rectum. Denies black, tarry stools. Denies constipation. GENITOURINARY: Denies difficulty urinating, painful urination, burning, frequency, blood in urine, or discharge. MUSCULOSKELETAL: Admits to flank pain SKIN: Denies rash, lesions or sores. HEMATOLOGIC : Denies easy bruising or bleeding. LYMPHATIC: Denies swollen, enlarged glands. NEUROLOGICAL: Denies confusion or altered mental status. Denies passing out or loss of consciousness. Denies dizziness or lightheadedness. Denies headache. Denies weakness or paralysis or loss of use of either side. Denies problems with gait or speech. Denies sensory loss, numbness, or tingling. Denies seizures. PSYCHIATRIC: Denies anxiety or stress. Denies depression, suicidal ideation, or homicidal ideation. ALL OTHER SYSTEMS REVIEWED AND NEGATIVE. Dictation was performed using [place] voice recognition software PHYSICAL EXAMINATION: GENERAL: Well-appearing, well-nourished and in no acute distress. HEAD: Atraumatic, normocephalic. EYES: Pupils equal round and reactive to light, extraocular movements intact, sclera anicteric, conjunctiva are normal. ENT: Nares patent, oropharynx clear without exudates. Moist mucous membranes. NECK: Normal range of motion, supple without lymphadenopathy LUNGS: Breath sounds clear to auscultation bilaterally and equal. No wheezes rales or rhonchi. Palpation of the left lower ribs notes tenderness no step- off no deformity no crepitus HEART: Regular rate and rhythm without murmurs ABDOMEN: Soft, nontender, nondistended abdomen. No guarding, no rebound. No masses appreciated. Musculoskeletal: Normal range of motion, no pitting or edema. No cyanosis. NEUROLOGICAL: Cranial nerves grossly intact. Normal speech, normal gait. Normal sensory, motor exams PSYCH: Normal mood, normal affect. SKIN: Warm, Dry, normal turgor, no rashes or lesions noted. Physical Exam - Vital signs Vitals: Temp Pulse Resp BP Pulse Ox 97.7 F 84 18 139/80 H 93 10/12/17 15:18 10/12/17 15:18 10/12/17 15:18 10/12/17 15:18 10/12/17 15:18 Course - Re-evaluation Re-evalutation: 10/12/17 20:26 Patient's presentation is consistent with a rib contusion versus a fracture, therefore CT was ordered, CT did not know any fracture, I do not believe patient requires any lab work or any further evaluation given that a Lidoderm patch completely resolved his pain. However on the CT findings adenopathy was noted, patient was made very aware of this and will be given oncology follow- up. He promises me he will follow-up with them After performing a Medical Screening Examination, I estimate there is LOW risk for ACUTE APPENDICITIS, BOWEL OBSTRUCTION, ACUTE CHOLECYSTITIS, PERFORATED DIVERTICULITIS, INCARCERATED HERNIA, PANCREATITIS, TESTICULAR TORSION or PERFORATED ULCER, thus I consider the discharge disposition reasonable. Also, there is no evidence or peritonitis, sepsis, or toxicity. I have reevaluated this patient multiple times and no significant life threatening changes are noted. The patient and I have discussed the diagnosis and risks, and we agree with discharging home with close follow-up with the understanding that symptoms and presentations can change. We also discussed returning to the Emergency Department immediately if new or worsening symptoms occur. We have discussed the symptoms which are most concerning (e.g., bloody stool, fever, changing or worsening pain, intractable vomiting - standard verbal up date) that necessitate immediate return. - Vital Signs Vital signs: Temp Pulse Resp BP Pulse Ox 97.8 F 80 18 172/94 H 94 10/12/17 17:50 10/12/17 17:50 10/12/17 17:50 10/12/17 17:50 10/12/17 17:50 - Diagnostic Test Radiology reviewed: Image reviewed, Reports reviewed - Adenopathy noted report given to patient Discharge - Discharge Clinical Impression: Rib pain on left side, Adenopathy Condition: Stable Disposition: HOME, SELF-CARE Instructions: Rib Contusion ([facility]) Prescriptions: Lidocaine [Lidoderm 5% (700 mg) Transdermal Patch] 1 patch TP DAILY #30 adh..patch Oxycodone HCl/Acetaminophen [Percocet 5-325 mg Tablet] 1 - 2 tab PO Q4H PRN #15 tablet PRN Reason: Referrals: HANNY HOLM MD [ACTIVE STAFF] - Follow up tomorrow
[2017-10-12] MEDS ORDERED: LIDOCAINE 5% (700 MG) TRANSDERMAL ADH..PATCH TP SCH (16:45)
--- NOTE | 2017-10-12 16:52 | RADIOLOGY REPORT (SQ) ---
EXAM DESCRIPTION: CT CHEST WITHOUT COMPLETED DATE/TIME: 10/12/2017 4:35 pm REASON FOR STUDY: left rib pain, sob, copd COMPARISON: Chest x-ray dated March 2017 TECHNIQUE: CT scan performed of the chest without intravenous contrast. Images reviewed with lung, soft tissue and bone windows. Reconstructed coronal and sagittal MPR images reviewed. All images st ored on PACS. All CT scanners at this facility use dose modulation, iterative reconstruction, and/or weight based d osing when appropriate to reduce radiation dose to as low as reasonably achievable (ALARA). [facility]: Dose Right [facility]: CareDose [facility]: Dose Right [facility]: Teradose 4D [facility]: [employer] RADIATION DOSE: mGy. LIMITATIONS: No technical limitations. FINDINGS: LUNGS AND PLEURA: No masses, infiltrates, pneumothorax. No pleural effusions, calcificati ons. HILAR AND MEDIASTINAL STRUCTURES: There are couple mildly enlarged mediastinal lymph nodes at the lev el of the aortopulmonary window. There are couple other scattered prominent mediastinal lymph nodes. HEART AND VASCULAR STRUCTURES: No aneurysm. There is some mild ectasia of the thoracic aorta with sc attered vascular calcifications. There is some mild thickening of the pericardium suggesting a tiny pericardial effusion. UPPER ABDOMEN: No significant findings. Limited exam. THYROID AND OTHER SOFT TISSUES: No masses. No adenopathy. BONES: No significant finding. HARDWARE: None in the chest. OTHER: No other significant findings. IMPRESSION: There are couple mildly enlarged mediastinal lymph nodes at the level of the aortopulmon lily window. There are a few other scattered prominent mediastinal lymph nodes. Other findings as no ct above. TECHNICAL DOCUMENTATION: JOB ID: [id number] Quality ID # [id number]: Final reports with documentation of one or more dose reduction techniques (e.g., Au tomated exposure control, adjustment of the mA and/or kV according to patient size, use of iterative reconstruction technique) 2010 [employer]- All Rights Reserved
[2017-10-12 17:52] VITALS: BP 172/94
== END 2017-10-12 17:58 | disposition home or self-care (01) ==
LOC: ER 15:08
DX: R07.81 Pleurodynia (principal); R59.9 Enlarged lymph nodes, unspecified; R10.9 Unspecified abdominal pain; N18.9 Chronic kidney disease, unspecified; F17.210 Nicotine dependence, cigarettes, uncomplicated
CPT/HCPCS: 71250; 99284

== ENCOUNTER 2018-02-03 13:58 | Emergency (ER) | payer MEDICARE, MEDICAID ==
--- NOTE | 2018-02-03 15:16 | ER Document Report ---
ED Skin Rash/Insect Bite/Abscs - General Chief Complaint: Skin Problem Stated Complaint: LEFT ARM PAIN Time Seen by Provider: 02/03/18 15:07 Mode of Arrival: Ambulatory Information source: Patient Notes: 62-year-old male presents to ED for complaint of pain and redness to his left AC. He states he was in to see her doctor for an infection in his foot where he had a retained obtained piece of plywood in his foot. He states they put him on Keflex on the sac. He states that the redness and itching started on his left AC on the fifth and he thought it would get better with the antibiotics. He states that the pain has not gotten better and it is continued to be red and itchy. TRAVEL OUTSIDE OF THE [place] IN LAST 30 DAYS: No - HPI Patient complains to provider of: Skin rash/lesion Onset: Other - January 20 Onset/Duration: Gradual, Persistent Quality of pain: Burning - And itchy Severity: Severe Pain Level: 5 Skin Character: Erythema, Rash, Tenderness Quality of rash: Itchy, Painful, Burning Identify cause: No Exacerbated by: Movement Relieved by: Denies Similar symptoms previously: No Recently seen / treated by doctor: Yes - Related Data Allergies/Adverse Reactions: simvastatin Allergy (Verified 10/12/17 16:20) Past Medical History - General Information source: Patient - Social History Smoking Status: Current Every Day Smoker Cigarette use (# per day): Yes Chew tobacco use (# tins/day): No Smoking Education Provided: Yes - 4 minutes Frequency of alcohol use: None Drug Abuse: None Family History: Arthritis, CAD, CVA, Hyperlipidemia, Hypertension, Malignancy Patient has suicidal ideation: No Patient has homicidal ideation: No - Past Medical History Cardiac Medical History: Reports: Hx Coronary Artery Disease, Hx Hypercholesterolemia, Hx Hypertension Pulmonary Medical History: Reports: Hx COPD EENT Medical History: Reports: None Neurological Medical History: Reports: Hx Cerebrovascular Accident - x3, Hx Migraine - gets botox injection tx, Hx Seizures - p stroke x 1 yr ago,on meds Endocrine Medical History: Reports: None Renal/ Medical History: Reports: None Malignancy Medical History: Reports None GI Medical History: Reports: Hx Diverticulitis, Hx Gastroesophageal Reflux Disease, Hx Colonoscopy, Hx Endoscopy Musculoskeltal Medical History: Reports Hx Arthritis, Reports Hx Musculoskeletal Trauma Skin Medical History: Reports None Psychiatric Medical History: Reports: Hx Depression Traumatic Medical History: Reports: None Infectious Medical History: Reports: None Past Surgical History: Reports: Hx Carotid Endarterectomy - Right, Hx Orthopedic Surgery - right rotator, left knee scope x3, Hx Tonsillectomy, Hx Vascular Surgery - right carotid - Immunizations Immunizations up to date: Yes Hx Diphtheria, Pertussis, Tetanus Vaccination: Yes Hx Pneumococcal Vaccination: 10/18/12 Review of Systems - Review of Systems Constitutional: No symptoms reported EENT: No symptoms reported Cardiovascular: No symptoms reported Respiratory: No symptoms reported Gastrointestinal: No symptoms reported Genitourinary: No symptoms reported Male Genitourinary: No symptoms reported Musculoskeletal: No symptoms reported Skin: Rash - Inflamed rash to the left AC Hematologic/Lymphatic: No symptoms reported Neurological/Psychological: No symptoms reported -: Yes All other systems reviewed and negative Physical Exam - Vital signs Vitals: Temp Pulse Resp BP Pulse Ox 98.0 F 102 H 20 146/68 H 94 02/03/18 14:09 02/03/18 14:09 02/03/18 14:09 02/03/18 14:09 02/03/18 14:09 Interpretation: Normal - General General appearance: Appears well, Alert - HEENT Head: Normocephalic, Atraumatic Eyes: Normal Pupils: PERRL - Respiratory Respiratory status: No respiratory distress Chest status: Nontender Breath sounds: Normal Chest palpation: Normal - Cardiovascular Rhythm: Regular Heart sounds: Normal auscultation Murmur: No - Abdominal Inspection: Normal Distension: No distension Bowel sounds: Normal Tenderness: Nontender Organomegaly: No organomegaly - Back Back: Normal, Nontender - Extremities General upper extremity: Normal inspection, Nontender, Normal color, Normal ROM , Normal temperature General lower extremity: Normal inspection, Nontender, Normal color, Normal ROM , Normal temperature, Normal weight bearing. No: Gume's sign - Neurological Neuro grossly intact: Yes Cognition: Normal Orientation: AAOx4 [place] Coma Scale Eye Opening: Spontaneous Kris Coma Scale Verbal: Oriented [place] Coma Scale Motor: Obeys Commands [place] Coma Scale Total: 15 Speech: Normal Motor strength normal: LUE, RUE, LLE, RLE Sensory: Normal - Psychological Associated symptoms: Normal affect, Normal mood - Skin Skin Temperature: Warm Skin Moisture: Dry Skin Color: Normal Skin irregularity: Rash - Left AC Location of irregularity: Other Character of irregularity: Erythematous Irregularity with: Tenderness, Thickening, Inflammation Course - Re-evaluation Re-evalutation: 02/03/18 15:43 Mr. left arm appears to be eczema. Patient was treated with steroid cream and instructed to follow-up with his primary doctor. No signs or symptoms of infection at this time. - Vital Signs Vital signs: Temp Pulse Resp BP Pulse Ox 97.8 F 91 18 136/81 H 95 02/03/18 15:48 02/03/18 15:48 02/03/18 15:48 02/03/18 15:48 02/03/18 15:48 Discharge - Discharge Clinical Impression: Eczema Qualifiers: Eczema type: unspecified Qualified Code(s): L30.9 - Dermatitis, unspecified HTN (hypertension) Qualifiers: Hypertension type: unspecified Qualified Code(s): I10 - Essential (primary) hypertension Condition: Stable Disposition: HOME, SELF-CARE Instructions: Family Physicians / Practices Additional Instructions: Atopic Dematitis (Eczema) You have atopic dermatitis, commonly called eczema. This is a chronic allergic skin condition. It often occurs in families with asthma and hay fever. The skin develops patches of redness, itching and scaling. Eczema often affects the back of the neck, back of the legs, and front of the arms. In children it affects the back of the knees, front of the elbows, and the cheeks. Itching is the main symptom. Eczema can be triggered by dryness, heat, sweating, and detergents or soap. Scratching makes the rash worse. Food or skin allergy can cause eczema. Emotional stress may also be a factor. Symptoms may get better or worse spontaneously. Generally, the treatment consists of: (1) avoid hot-water baths, (2) avoid using soap on your skin, (3) apply a cortisone cream as needed, and (4) use antihistamines for itching. For severe episodes, oral cortisone medication may be required. Call the doctor if you get worse despite treatment, or if signs of infection occur -- such as spreading redness, red streaks, swollen glands, swelling, or fever. STEROID MEDICATION: You have been given a medicine of the cortisone/steroid class. This medication is used to control inflammation or allergy. It is usually only given for a short period of time, until the acute process subsides. There are usually no side effects from short-term use of cortisone-like medications. Some persons feel an increased sense of well-being and are not sleepy at bedtime. Long-term use of cortisone medications is best avoided, unless required for a severe condition. If your condition does not remit, or relapses after the course of corticosteroid medication, you should consult your physician. FOLLOW-UP CARE: If you have been referred to a physician for follow-up care, call the physician s office for an appointment as you were instructed or within the next two days. If you experience worsening or a significant change in your symptoms, notify the physician immediately or return to the Emergency Department at any time for re-evaluation. Prescriptions: Triamcinolone Acetonide [Aristocort 0.5% Cream 15 gm] 1 applic TP BID #1 tube Forms: Elevated Blood Pressure, Smoking Cessation Education, Return to Work
[2018-02-03 15:49] VITALS: BP 136/81
== END 2018-02-03 15:49 | disposition home or self-care (01) ==
LOC: ER 13:58
DX: L30.9 Dermatitis, unspecified (principal); I10 Essential (primary) hypertension; M79.602 Pain in left arm; F17.210 Nicotine dependence, cigarettes, uncomplicated; I25.10 Atherosclerotic heart disease of native coronary artery without angina pectoris; E78.00 Pure hypercholesterolemia, unspecified; J44.9 Chronic obstructive pulmonary disease, unspecified; Z86.73 Personal history of transient ischemic attack (TIA), and cerebral infarction without residual deficits
CPT/HCPCS: 99283; 99406

== ENCOUNTER → 2018-03-02 | Outpatient (CLI) | payer MEDICARE, MEDICAID ==
[2018-03-02 13:18] LABS: HEMATOCRIT 36.2 % (37.9-51.0); MEAN CORPUSCULAR HEMOGLOBIN 21.6 pg (27.0-33.4); MEAN CORPUSCULAR HGB CONC 30.5 g/dL (32.0-36.0); MEAN CORPUSCULAR VOLUME 71 fl (80-97); PLATELET COUNT 532 10^3/uL (150-450); WHITE BLOOD COUNT 14.3 10^3/uL (4.0-10.5)
[2018-03-02 13:21] LABS: APPEARANCE,URINE SLIGHTLY-CLOUDY; BILIRUBIN,URINE NEGATIVE (NEGATIVE); COLOR,URINE YELLOW; GLUCOSE, URINE NEGATIVE (NEGATIVE); KETONES,URINE NEGATIVE (NEGATIVE); LEUKOCYTE ESTERASE,URINE MODERATE (NEGATIVE); NITRITE,URINE NEGATIVE (NEGATIVE); PROTEIN,URINE NEGATIVE (NEGATIVE); URINE SPECIFIC GRAVITY 1.018; UROBILINOGEN,URINE NEGATIVE mg/dL (<2.0)
[2018-03-02 13:43] LABS: ANION GAP 15 (5-19); BLOOD UREA NITROGEN 20 mg/dL (7-20); CARBON DIOXIDE 25 mmol/L (22-30); CHLORIDE 107 mmol/L (98-107); GLUCOSE 70 mg/dL (75-110); POTASSIUM 5.3 mmol/L (3.6-5.0); SODIUM 147.3 mmol/L (137-145)
== END ==
LOC: OD 11:50
PROVIDERS: ATTEND Internal Medicine Nephrology
DX: I12.9 Hypertensive chronic kidney disease with stage 1 through stage 4 chronic kidney disease, or unspecified chronic kidney disease (principal); N18.2 Chronic kidney disease, stage 2 (mild); N20.0 Calculus of kidney; I63.9 Cerebral infarction, unspecified
CPT/HCPCS: 36415; 80048; 81001; 85027